=== PATIENT | male | born 1990 | race Caucasian/White ===

== ENCOUNTER 2016-07-10 17:15 | Emergency (ER) | payer OTHER ==
[2016-07-10 17:26] VITALS: BP 145/75; PULSE 75; TEMP 98; BMI 25.0
--- NOTE | 2016-07-10 17:50 | PDOC ---
History of Present Illness - General Chief Complaint: Injury Stated Complaint: RT HAND INJURY Time Seen by Provider: 07/10/16 17:28 History Source: Patient Exam Limitations: No Limitations - History of Present Illness Initial Comments: 07/10/16 17:47 25 yr male states he trip and fell and cut his hand . Pt denies trauma no LOC. tetanus UTD. Occurred: reports: just prior to arrival Severity: reports: mild Method of Injury: Yes: fall Loss of Consciousness: no loss of consciousness Past History - Past Medical History Allergies/Adverse Reactions: Allergies Allergy/AdvReac Type Severity Reaction Status Date / Time No Known Allergies Allergy Verified 07/10/16 17:20 Home Medications: Ambulatory Orders NK [No Known Home Medication] 07/10/16 Other medical history: denies - Psycho/Social/Smoking Cessation Hx Suicidal Ideation: No Smoking History: Never smoked Information on smoking cessation initiated: No Hx Alcohol Use: Yes (Marijuana) Drug/Substance Use Hx: No Substance Use Type: Marijuana Trauma Specific PMHX - Complaint Specific PMHX Arthritis: No Back Injury: No Neck Injury: No Hx Sacro Iliac Joint Dysfunction: No Review of Systems - Review of Systems Able to Perform ROS?: Yes Is the patient limited Chinese proficient: No Constitutional: No: Symptoms Reported HEENTM: No: Symptoms Reported Respiratory: No: Symptoms reported Cardiac (ROS): No: Symptoms Reported ABD/GI: No: Symptoms Reported : No: Symptoms Reported Musculoskeletal: Yes: See HPI Integumentary: Yes: See HPI *Physical Exam - Vital Signs Last Vital Signs Temp Pulse Resp BP Pulse Ox 98 F 75 18 145/75 99 07/10/16 17:17 07/10/16 17:17 07/10/16 17:17 07/10/16 17:17 07/10/16 17:17 - Physical Exam General Appearance: Yes: Nourished, Appropriately Dressed HEENT: positive: EOMI, ZAY, Normal ENT Inspection, TMs Normal, Pharynx Normal Neck: positive: Supple. negative: Tender Respiratory/Chest: positive: Lungs Clear, Normal Breath Sounds Cardiovascular: positive: Regular Rhythm, Regular Rate Gastrointestinal/Abdominal: positive: Normal Bowel Sounds, Soft Musculoskeletal: positive: Normal Inspection Extremity: positive: Normal Capillary Refill, Normal Inspection, Normal Range of Motion, Other (no bony tenderness, FROM nv intact) Integumentary: positive: Normal Color, Other (right hand over the MCP 5th digit with superficial abrasions) Neurologic: positive: Fully Oriented, Alert, Normal Mood/Affect, Normal Response , Motor Strength 5/5 Procedures - Laceration/Wound Repair Right Dorsal 5th digit Hand Wound Length: to 2.5 cm Wound Explored: clean Wound's Depth, Shape: superficial Betadine Prep: Yes Sterile Dressing Applied: Yes Progress: 07/10/16 17:52 bacitracin and bandaid placed Medical Decision Making - Medical Decision Making 07/10/16 17:50 cc: trip and fall cut right hand on the cement pt has FROM no pain nv intact refused xray wound cleaned bacitracin and bandaid placed *DC/Admit/Observation/Transfer Diagnosis at time of Disposition: Abrasion - Discharge Dispostion Disposition: HOME Condition at time of disposition: Improved - Patient Instructions Additional Instructions: keep clean and dry' apply bacitracin or any triple antibiotic ointment twice daily until healed take motrin for any pain return to ER if any worsening pain
== END 2016-07-10 17:53 | disposition home or self-care (01) ==
LOC: JERFT 17:15
DX: S60.511A Abrasion of right hand, initial encounter (principal); W01.198A Fall on same level from slipping, tripping and stumbling with subsequent striking against other object, initial encounter; Y93.89 Activity, other specified; Y92.89 Other specified places as the place of occurrence of the external cause
CPT/HCPCS: 99281-25

== ENCOUNTER 2017-08-10 09:48 | Emergency (ER) | payer OTHER ==
[2017-08-10 09:57] VITALS: BP 119/83; PULSE 67; TEMP 98; BMI 25.0
== END 2017-08-10 10:14 | disposition left against medical advice (07) ==
LOC: JERFT 09:48
DX: Z53.21 Procedure and treatment not carried out due to patient leaving prior to being seen by health care provider (principal)
CPT/HCPCS: 99281-25